=== PATIENT | male | born 1945 | race Caucasian/White ===

== ENCOUNTER → 2024-01-09 14:53 | Outpatient (REF) | payer MEDICARE, OTHER, SELFPAY | LOC: RCS 14:53 | PROVIDERS: ATTENDING PHYSICIAN Internal Medicine Cardiovascular Disease; FAMILY PHYSICIAN Internal Medicine | DX: I45.9 Conduction disorder, unspecified (principal); I77.810 Thoracic aortic ectasia | CPT/HCPCS: 93306 ==